=== PATIENT | female | born 2000 | race Caucasian/White ===

== ENCOUNTER 2020-09-11 22:54 | Observation (INO) ==
[2020-09-11 23:35] LABS: Bilirubin,Urine Small mg/dL (Negative); Blood, Urine Small mg/dL (Negative); Glucose,Urine (UA) Negative (Negative); Ketones,Urine 20 mg/dL (Negative); Mucus,Urine Many /LPF (Occasional); Nitrite,Urine Negative (Negative); Protein,Urine 100 MG/DL; RBC,Urine 20 /HPF (0-4); Renal Epithelial Cells,Urine Occasional /HPF (<1); Squamous Epithelial Cell,Urine Occasional /HPF (0-10); Urine Appearance CLEAR (Clear); Urine Color Amber (Yellow); Urine Specific Gravity 1.031 (1.001-1.035)
[2020-09-11] MEDS ORDERED: LACTATED RINGERS 1,000 ML IV ONE (23:56)
[2020-09-11] MEDS ORDERED: NITROFURANTOIN MACRO/MONO 100 MG CAPSULE PO ONE (23:58)
== END 2020-09-12 01:30 | disposition home or self-care (01) ==
LOC: N.LD
PROVIDERS: ADMIT Specialist; ATTEND Specialist

== ENCOUNTER → 2020-09-26 19:02 | Observation (INO) ==
[2020-09-26 18:39] LABS: Bacteria,Urine Occasional /HPF (Few); Bilirubin,Urine Negative (Negative); Blood, Urine Negative (Negative); Calcium Oxalate Crystals,Urine Few /HPF (Few); Glucose,Urine (UA) Negative (Negative); Ketones,Urine Negative (Negative); Mucus,Urine Few /LPF (Occasional); Nitrite,Urine Negative (Negative); Protein,Urine 30 MG/DL; RBC,Urine 5 /HPF (0-4); Squamous Epithelial Cell,Urine Moderate /HPF (0-10); Urine Appearance CLOUDY (Clear); Urine Color Amber (Yellow); Urine Specific Gravity 1.027 (1.001-1.035)
== END | disposition home or self-care (01) ==
LOC: N.LD
PROVIDERS: ADMIT Obstetrics & Gynecology; ATTEND Obstetrics & Gynecology

== ENCOUNTER 2020-11-04 11:29 | Observation (INO) ==
[2020-11-04] MEDS ORDERED: BETAMETH SODIUM PHOS/ACETATE 30 MG/5 ML VIAL IM ONE (12:08)
[2020-11-04] MEDS: MAGNESIUM GLUCONATE 500 MG TABLET PO SCH ×3 (12:20→21:07)
[2020-11-04] MEDS ORDERED: BETAMETH SODIUM PHOS/ACETATE 30 MG/5 ML VIAL IM SCH (19:00)
[2020-11-05] MEDS: MAGNESIUM GLUCONATE 500 MG TABLET PO SCH ×3 (03:24→11:21)
[2020-11-05] MEDS ORDERED: MAGNESIUM GLUCONATE 500 MG TABLET PO ONE ×3 (07:00→15:00)
[2020-11-05] MEDS ORDERED: BETAMETH SODIUM PHOS/ACETATE 30 MG/5 ML VIAL IM ONE (12:20)
== END 2020-11-05 13:04 | disposition home or self-care (01) ==
LOC: N.LDOUT 11:29 → N.LD 11:29
PROVIDERS: ADMIT Obstetrics & Gynecology; ATTEND Obstetrics & Gynecology

== ENCOUNTER 2021-01-06 07:54 | Inpatient (IN) ==
[2021-01-06] MEDS ORDERED: MEPERIDINE 50 MG/1 ML VIAL IV PRN (08:12)
[2021-01-06] MEDS ORDERED: ONDANSETRON 4 MG/2 ML VIAL IV PRN ×2 (08:12→14:34)
[2021-01-06] MEDS ORDERED: BUTORPHANOL 2 MG/ML VIAL IV PRN (08:12)
[2021-01-06] MEDS: LACTATED RINGERS 1,000 ML IV SCH ×2 (08:15→10:56)
[2021-01-06] MEDS ORDERED: OXYTOCIN/LR 20 UNIT/1,000 ML BAG IV SCH (08:30)
[2021-01-06 08:38] LABS: Basophils % 0.1 % (0.0-0.8); Eosinophils # 0.1 10*3/uL (0.0-0.87); Eosinophils % 0.6 % (0.00-10.9); Hematocrit 33.2 VOL% (35.7-47.0); Hemoglobin 10.8 GM/DL (12.0-16.0); Immature Granulocytes % 0.4 %; Immature Granulocytes Absolute 0.03 #; Lymphocytes # 1.6 10*3/uL (1.4-4.0); Lymphocytes % 19.1 % (21.3-54.2); Mean Corpuscular HGB Conc 32.5 GM/DL (32-36); Mean Corpuscular Volume 86.5 FL (87-102); Mean Platelet Volume 10.7 FL (9.6-12.0); Monocytes % 6.3 % (1.7-12.7); Neutrophils % 73.5 % (38.7-73.9); Platelet Count 295 T/CUMM (130-400); Red Blood Count 3.84 MC/CUMM (3.8-5.5); Red Cell Distribution Width 13.9 % (9.3-17.3); White Blood Count 8.4 T/CUMM (4-12)
[2021-01-06] MEDS ORDERED: ePHEDrine 50 MG/ML VIAL IV PRN (09:06)
[2021-01-06] MEDS ORDERED: FAMOTIDINE 20 MG/2 ML VIAL IV ONE (09:06)
[2021-01-06] MEDS ORDERED: LACTATED RINGERS 1,000 ML IV ONE (09:06)
[2021-01-06] MEDS ORDERED: hydrOXYzine HCL 25 MG/1 ML VIAL IM PRN (09:06)
[2021-01-06] MEDS ORDERED: NALOXONE 0.4 MG/ML VIAL IV PRN (09:06)
[2021-01-06] MEDS ORDERED: diphenhydrAMINE 50 MG/1 ML VIAL IV PRN ×2 (09:06)
[2021-01-06] MEDS ORDERED: CITRIC ACID/SODIUM CITRATE 30 ML UDCUP PO ONE (09:06)
[2021-01-06 09:25] LABS: Albumin 2.5 G/DL (3.4-5.0); Bilirubin,Total 0.7 MG/DL (0.20-1.00); Osmolality,Calculated 274.4 MOS/KG (273-304); Potassium 3.7 MMOL/L (3.5-5.1); Total Protein 6.6 G/DL (6.4-8.2)
[2021-01-06] MEDS ORDERED: fentaNYL 2 MCG/ROPIV 0.2% EPID 100 ML EPIDURAL SCH (09:30)
[2021-01-06] MEDS ORDERED: ACETAMINOPHEN 325 MG TABLET PO PRN ×2 (11:17→14:34)
[2021-01-06 12:20] LABS: Bilirubin,Urine Negative (Negative); Blood, Urine Negative (Negative); Glucose,Urine (UA) Negative (Negative); Ketones,Urine 80 mg/dL (Negative); Mucus,Urine Occasional /LPF (Occasional); Nitrite,Urine Negative (Negative); Protein,Urine Negative; Squamous Epithelial Cell,Urine Occasional /HPF (0-10); Urine Appearance CLEAR (Clear); Urine Color Yellow (Yellow); Urine Specific Gravity 1.015 (1.001-1.035)
[2021-01-06] MEDS ORDERED: METHYLERGONOVINE 0.2 MG/1 ML AMP ONE (13:36)
[2021-01-06] MEDS ORDERED: miSOPROStoL 200 MCG TABLET ONE (13:36)
[2021-01-06] MEDS ORDERED: CARBOPROST TROMETHAMINE 250 MCG/ML AMP IM ONE (13:36)
[2021-01-06] MEDS ORDERED: RHO(D) IMMUNE GLOBULIN 300 MCG SYRINGE IM ONE (14:34)
[2021-01-06] MEDS ORDERED: HYDROCORTISONE 2.5% RECTAL CREAM 30 GM TUBE TOP PRN (14:34)
[2021-01-06] MEDS ORDERED: LANOLIN 50% CREAM 0.3 OZ TUBE TOP PRN (14:34)
[2021-01-06] MEDS ORDERED: WITCH HAZEL PADS 100/JAR TOP PRN (14:34)
[2021-01-06] MEDS ORDERED: OXYTOCIN/LR 20 UNIT/1,000 ML BAG IV ONE (14:34)
[2021-01-06] MEDS ORDERED: ACETAMINOPHEN/CODEINE 300-30 MG TABLET PO PRN ×2 (14:34)
[2021-01-06] MEDS ORDERED: BENZOCAINE 20%/MENTHOL 0.5% SPRAY 56 GM CAN TOP PRN (14:34)
[2021-01-06] MEDS ORDERED: BISACODYL 10 MG SUPP RECTAL PRN (14:34)
[2021-01-06 14:45] LABS: Cord Venous Blood HCO3 21.1 MMOL/L; Cord Venous Blood PCO2 35.3 MMHG
[2021-01-06] MEDS: DOCUSATE SODIUM 100 MG CAPSULE PO SCH (20:49)
[2021-01-06] MEDS: IBUPROFEN 800 MG TABLET PO PRN (20:50)
[2021-01-07 05:58] LABS: Basophils % 0.3 % (0.0-0.8); Eosinophils # 0.2 10*3/uL (0.0-0.87); Eosinophils % 1.9 % (0.00-10.9); Hematocrit 30.9 VOL% (35.7-47.0); Hemoglobin 9.9 GM/DL (12.0-16.0); Immature Granulocytes % 0.5 %; Immature Granulocytes Absolute 0.05 #; Lymphocytes # 2.3 10*3/uL (1.4-4.0); Mean Platelet Volume 11.2 FL (9.6-12.0); Monocytes % 8.5 % (1.7-12.7); Neutrophils % 64.8 % (38.7-73.9); Platelet Count 269 T/CUMM (130-400); Red Blood Count 3.51 MC/CUMM (3.8-5.5); Red Cell Distribution Width 14.1 % (9.3-17.3); White Blood Count 9.7 T/CUMM (4-12)
[2021-01-07] MEDS: FERROUS SULFATE 325 MG TABLET PO SCH (08:29)
[2021-01-07] MEDS: DOCUSATE SODIUM 100 MG CAPSULE PO SCH ×2 (08:29→22:02)
[2021-01-07] MEDS: MULTIVITAMIN (PRENATAL) TABLET PO SCH (08:29)
[2021-01-07] MEDS: IBUPROFEN 800 MG TABLET PO PRN ×2 (15:36→22:03)
[2021-01-08] MEDS: MULTIVITAMIN (PRENATAL) TABLET PO SCH (09:00)
[2021-01-08] MEDS: DOCUSATE SODIUM 100 MG CAPSULE PO SCH (09:00)
[2021-01-08] MEDS: FERROUS SULFATE 325 MG TABLET PO SCH (09:00)
[2021-01-08 11:57] VITALS: BP 138/81
[2021-01-08] MEDS: IBUPROFEN 800 MG TABLET PO PRN (13:07)
== END 2021-01-08 14:15 | disposition home or self-care (01) | DRG 560 ==
LOC: N.LD 07:54 → N.OB 17:27
PROVIDERS: ADMIT Obstetrics & Gynecology; ATTEND Obstetrics & Gynecology